=== PATIENT | female | born 1945 | race Caucasian/White ===

== ENCOUNTER → 2024-09-17 11:58 | Day surgery (SDC) | payer MEDICARE, OTHER, SELFPAY ==
--- NOTE | 2024-09-17 17:03 | ITS.CL.IMPLP ---
[employer] L[employer] Technician - Implant Loop
Implant Loop
Procedure Report:
Date of Procedure: September 17, 2024.
Procedure: Insertable Loop Recorder Implant.
Indication: Unexplained syncope with a negative outpatient telemetry.
Performing physician: Brooks Goodson MD, [facility].
Implant: [employer]; Reveal LINQ; Model# LNQ11; Serial# [id number].
Technique: The patient was prepped and draped in the usual fashion. A time-out was performed. No intravenous sedation was administered. Local anesthetic was applied to the left pre-pectoral subcutaneous tissue. Using the insertion kit an incision
was made left of the midline in the fourth intercostal space and the device was implanted subcutaneously and directed towards the nipple but R waves were 0.13 mV. The device was repositioned to a more horizontal orientation with good R waves.
Hemostasis was excellent. The skin was closed with 4-0 Vicryl and steri-strips. The estimated blood loss was less than 1 ml. There were no complications. No fluoroscopy. R waves measured 0.3 mV and P waves were visible.
Final Programming: Detections: Afib, tachy at 160 bpm, og at 30 bpm, pause at 3 sec.
Conclusion: Uncomplicated insertable loop implant.
Recommendation: Routine post-insertable loop care. The device is MRI conditional without a waiting period and up to 3 Lennie.
cc: Jerson Benavidez MD and Urvashi Juares DO.
== END | disposition home or self-care (01) ==
LOC: CATH 11:58
PROVIDERS: ATTENDING PHYSICIAN Internal Medicine Cardiovascular Disease; FAMILY PHYSICIAN Family Medicine; OTHER PHYSICIAN Internal Medicine Cardiovascular Disease
DX: Z09 Encounter for follow-up examination after completed treatment for conditions other than malignant neoplasm (principal); R55 Syncope and collapse; I27.20 Pulmonary hypertension, unspecified; E66.9 Obesity, unspecified; Z68.41 Body mass index [BMI] 40.0-44.9, adult; Z87.891 Personal history of nicotine dependence; K21.9 Gastro-esophageal reflux disease without esophagitis; R73.03 Prediabetes
CPT/HCPCS: 33285; C1764

== ENCOUNTER → 2024-09-27 18:23 | Outpatient (REF) | payer MEDICARE, OTHER, SELFPAY | LOC: MRI 3T 18:23 | PROVIDERS: ATTENDING PHYSICIAN Family Medicine | DX: Z86.79 Personal history of other diseases of the circulatory system (principal); I60.8 Other nontraumatic subarachnoid hemorrhage | CPT/HCPCS: 70546; 70553; A9585 ==

== ENCOUNTER → 2025-03-14 16:12 | Outpatient (REF) | payer MEDICARE, OTHER, SELFPAY | LOC: RAD 16:12 | PROVIDERS: ATTENDING PHYSICIAN Internal Medicine Critical Care Medicine; FAMILY PHYSICIAN Family Medicine | DX: R06.02 Shortness of breath (principal) | CPT/HCPCS: 71046 ==

== ENCOUNTER → 2025-09-26 11:53 | Outpatient (REF) | payer MEDICARE, OTHER, SELFPAY | LOC: WDC 11:53 | PROVIDERS: ATTENDING PHYSICIAN Family Medicine | DX: Z12.31 Encounter for screening mammogram for malignant neoplasm of breast (principal) | CPT/HCPCS: 77063; 77067 ==